=== PATIENT | female | born 1970 | race Two or more races ===

== ENCOUNTER 2020-07-05 11:30 | Inpatient (IN) | payer OTHER ==
[~2020-07-05] VITALS: Ht 167.6 cm; Wt 86.2 kg
[2020-07-05] MEDS ORDERED: DILTIAZEM 24HR180 MG PO (14:08)
[2020-07-12] MEDS ORDERED: ETODOLAC500 MG (10:19)
[2020-07-12] MEDS ORDERED: CLONAZEPAM0.5 MG (10:19)
[2020-07-12] MEDS ORDERED: CYCLOBENZAPRINE10 MG (10:19)
[2020-07-12] MEDS ORDERED: DULOXETINE HCL30 MG (10:19)
[2020-07-12] MEDS ORDERED: QUETIAPINE FUM100 MG (10:20)
[2020-07-12] MEDS ORDERED: METOPROLOL TAR100 MG (10:20)
[2020-07-12] MEDS ORDERED: QUETIAPINE FUMA50 MG (10:20)
[2020-07-12] MEDS ORDERED: GABAPENTIN400 MG (10:20)
[2020-07-14] MEDS ORDERED: OXYC1TAB9 PO (07:28)
[2020-07-14] MEDS ORDERED: LEVSIN/SL0.125 MG SL (07:28)
== END 2020-07-14 12:22 | disposition home or self-care (01) | DRG 743 ==
LOC: O/R 07-12 08:36 → OB/GYN 07-12 08:36 → SURH 07-12 11:30 → OB/GYN 07-12 15:21
PROVIDERS: ADMIT Obstetrics & Gynecology Gynecology; ATTEND Obstetrics & Gynecology Gynecology
PROC: 0UB70ZZ Excision of Bilateral Fallopian Tubes, Open Approach (ICD-10-PCS; 2020-07-12)
PROC: 0UT90ZZ Resection of Uterus, Open Approach (ICD-10-PCS; principal; 2020-07-12 11:45)
DX: N80.0 Endometriosis of uterus (principal); N72 Inflammatory disease of cervix uteri; Z20.828 Contact with and (suspected) exposure to other viral communicable diseases